=== PATIENT | female | born 1990 | race African-American/Black ===

== ENCOUNTER 2021-01-04 01:30 | Emergency (ER) | payer OTHER ==
[~2021-01-04] VITALS: Ht 175.3 cm; Wt 70.0 kg
[2021-01-04] MEDS ORDERED: TOPUD MT (02:04)
[2021-01-04] MEDS ORDERED: GUAI-824 MT (02:04)
[2021-01-04 02:29] VITALS: BP 128/69
== END 2021-01-04 02:31 | disposition home or self-care (01) ==
LOC: ER 01:30
DX: R05.9 Cough, unspecified (principal); Z20.822 Contact with and (suspected) exposure to COVID-19
CPT/HCPCS: 99283; C9803; U0003; U0005